=== PATIENT | male | born 1960 | race Caucasian/White ===

== ENCOUNTER 2025-03-06 08:55 | Outpatient (AMB) | payer MEDICARE, BC, SELFPAY ==
[2025-03-06 09:12] VITALS: BP 105/67; PULSE 79; RESP 18; TEMP 36.7; O2SAT 96; BMI 23.4
--- NOTE | 2025-03-06 09:12 | PD.GSCLVISIT ---
Vital Signs - [facility] 03/06/25 09:12 Height 1.68 m Height Method Stated Weight 65.969 kg Weight Measurement Method Standing Scale BMI 23.4 BP 105/67 Blood Pressure Source Automatic Cuff Blood Pressure Location Left Upper Arm Position Sitting Respiration 18 Pulse 79 Pulse Source Monitor Temp 98.0 F Temp Source Temporal Artery Scan Pulse Oximetry (%) 96 Oxygen Delivery Method Room Air Med/Allergies Allergies & Medications Allergies No Known Allergies Allergy (Verified 03/06/25 09:14) Medication Reconciliation carbidopa 25 mg tablet 25 mg PO Q8H 03/06/25 [History Confirmed 03/06/25] entacapone 200 mg tablet 200 mg PO BID 03/06/25 [History Confirmed 03/06/25] naproxen 500 mg tablet 500 mg PO BID 03/06/25 [History Confirmed 03/06/25] tizanidine 2 mg capsule 2 mg PO Q8H PRN 03/06/25 [History Confirmed 03/06/25] valacyclovir 1 gram tablet 1,000 mg PO QDAY 03/06/25 [History Confirmed 03/06/25] MA Intake Visit Data Collection New Patient or Established: New Patient (never been to [facility]) Seen by Clinical Staff ONLY (RN/MA): No Reason for Visit:: REFERRAL CONSTIPATION Pain Present Currently: No Pain scale:: 0 PCP or OBGYN visit in last 3 months: Yes Hx Now: No Do You Feel Safe at Home: Yes Authorities Contacted: N/A Smoking Status Smoking Status: Never smoker Immunization / Flu Flu Vaccine in the Last 12 Months: No Flu Vaccine Exclusion Criteria: Refused by Patient Past Medical History Social History SMOKING STATUS: Smoking status: Never smoker Past Medical History Comments PMH COMMENT: COLONOSCOPY 5 YEARS AGO-FINDINGS: DIVERTICULITIS HPI HPI Narrative 64M with Parkinson's referred for difficulty evacuating stool. Pt states that for the past several months he has noted a change in his defecation, such that the stool does not as easily make the sharp turn to enter his rectum which he previously felt happened easily. He denies any change in the caliber of his stools, he takes miralax which makes them somewhat watery and states that it is difficult for him to drink as much water as he would like to, but emphasizes that he does not feel constipated as much as he feels like his pelvic floor muscles are just not working as they used to. Pt had a colonoscopy 2-3 years ago and was told that because of inadequate prep, the ascending colon was not well visualized but otherwise he was told he had diverticulosis and there were no polyps visualized. Pt states he first began having tremors in 2018 but was diagnosed with Parkinson's in 2019. 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 Pt understands that his symptoms may be related to his Parkinson's disease however he understandably would like to undergo workup. I offered repeat colonoscopy but pt prefers to hold off as his last colonoscopy was fairly recent, and he is more interested in having an evaluation of his pelvic floor muscles. I explained that I will reach out to Dr Peralta in [place] to confirm he has the equipment to perform defecography before sending a referral. Pt expressed understanding and is agreeable with this plan Advanced Care Planning Advance care planning discussed with:: patient Office Procedures GNS Level of Care Nursing/Assessment Patient Status: Initial/New Patient Nursing Assessment/Reassesment: Medication Reconciliation, Update PMH in EMR and Vital Signs Coordination of Care: Complex Care and Chronic Disease 1-5, Consent,records obtained, informed consent, Education Simp Pt/Fam, Results/Orders obtained and Staff clarify orders New Patient Charge New Patient Point Assignment: [id number] New Patient Point Charge: [employer]ACE [employer]PERVISOR Level 3 ([id number]) Patient Portal Questionaires Social History Tobacco History Smoking Status: Never smoker Domestic Abuse History Do You Feel Safe at Home: Yes Review of Systems Report any current symptoms Only answer those that you have currently: Past Medical History Past Medical History Have you ever been diagnosed with any of the following:
== END 2025-03-06 09:43 | disposition home or self-care (01) ==
PROVIDERS: PCP Family Medicine; Referring Provider Family Medicine; Supervising Provider Surgery; Visit Provider Surgery
DX: K59.02 Outlet dysfunction constipation (principal)
CPT/HCPCS: 99203; G0463